=== PATIENT | male | born 1945 | race Caucasian/White ===

== ENCOUNTER → 2018-04-16 | Outpatient (CLI) | payer BC ==
--- NOTE | 2018-04-16 12:33 | 2DMMODE ---
[facility] [place] [address] 2 D/M-MODE ECHOCARDIOGRAM Name: NIEVES CESPEDES Room #: REG [facility]#: [id number] Admission: 04/16/18 Attend Phys: Santi Oliver MD Discharge: Date of : 47 Date of Service: 04/16/18 1233 Report #: [id number] THIS REPORT FOR: //name// APPROVED REPORT Study performed: 04/16/2018 11:12:18 EXAM: Comprehensive 2D, Doppler, and color-flow Echocardiogram Patient Location: Out-Patient Room #: Echo lab 2 Status: routine BSA: 2.38 HR: 68 bpm BP: 132/78 mmHg Rhythm: NSR Other Information Study Quality: Adequate Indications Chest Pain Hypertension/HDD 2D Dimensions RVDd: 35.78 mm IVSd: 12.27 (7-11mm) LVOT Diam: 24.17 (18-24mm) LVDd: 47.92 mm PWd: 11.56 (7-11mm) Ascending Ao: 33.97 (22-36mm) LVDs: 32.44 (25-40mm) Aortic Root: 37.70 mm IVC: 15.00 mm Volumes Left Atrial Volume (Systole) Single Plane 4CH: 39.38 mL Single Plane 2CH: 40.26 mL LA ESV Index: 20.00 mL/m2 Aortic Valve AoV Peak Draiusz.: 1.20 m/s AO Peak Gr.: 5.74 mmHg LVOT Max P.28 mmHg LVOT Max V: 1.03 m/s JINNY Vmax: 3.96 cm2 Mitral Valve E/A Ratio: 0.9 MV Decel. Time: 190.33 ms [facility] [place] [address] [place] [address] 2 D/M-MODE ECHOCARDIOGRAM Name: NIEVES CESPEDES Room #: REG [facility]#: [id number] Admission: 04/16/18 Attend Phys: Santi Oliver MD Discharge: Date of : 47 Date of Service: 04/16/18 1233 Report #: [id number] MV E Max Dariusz.: 0.92 m/s MV A Dariusz.: 1.07 m/s MV PHT: 55.20 ms IVRT: 115.34 ms Pulmonary Valve PV Peak Dariusz.: 0.96 m/s PV Peak Gr.: 3.66 mmHg Pulmonary Vein P Vein S: 0.47 m/s P Vein A: 0.32 m/s P Vein D: 0.48 m/s P Vein A Dur.: 115.3 msec P Vein S/D Ratio: 0.98 Tricuspid Valve TR Peak Dariusz.: 2.39 m/s TR Peak Gr.: 22.93 mmHg PA Pressure: 28.00 mmHg Left Ventricle The left ventricle is normal size. Mild concentric left ventricular hypertrophy. The left ventricular systolic function is normal. The left ventricular ejection fraction is within the normal range. LVEF is 55-60%. Grade I - abnormal relaxation pattern. Right Ventricle The right ventricle is normal size. The right ventricular systolic function is normal. Atria The left atrium size is normal. The right atrium size is normal. Aortic Valve The aortic valve is normal in structure. No aortic regurgitation is present. There is no aortic valvular stenosis. Mitral Valve The mitral valve is normal in structure. Trace to mild mitral regurgitation. No evidence of mitral valve stenosis. Tricuspid Valve The tricuspid valve is normal in structure. There is trace tricuspid regurgitation. Estimated PAP 28 mmHg. There is no pulmonary hypertension. Pulmonic Valve [facility] [address] [place] [address] 2 D/M-MODE ECHOCARDIOGRAM Name: NIEVES CESPEDES Room #: REG [facility]#: [id number] Admission: 04/16/18 Attend Phys: Santi Oliver MD Discharge: Date of : 47 Date of Service: 04/16/18 1233 Report #: [id number] The pulmonary valve is normal in structure. Trace pulmonic regurgitation. Great Vessels The aortic root is normal in size. IVC is normal in size and collapses >50% with inspiration. Pericardium There is no pericardial effusion. <Conclusion> The left ventricle is normal size. Mild concentric left ventricular hypertrophy. The left ventricular systolic function is normal. Grade I - abnormal relaxation pattern. The right ventricle is normal size. The left atrium size is normal. The aortic valve is normal in structure. Trace to mild mitral regurgitation. There is trace tricuspid regurgitation. Estimated PAP 28 mmHg. <ELECTRONICALLY SIGNED> By: Santi Oliver MD 04/16/18 1233 1233 1233 Santi Oliver MD /INF
== END ==
LOC: CV 07:29
DX: I51.7 Cardiomegaly (principal); R06.09 Other forms of dyspnea

== ENCOUNTER 2018-04-23 07:25 | Inpatient (IN) | payer BC, OTHER ==
[~2018-04-23] VITALS: Ht 182.9 cm; Wt 123.4 kg
--- NOTE | ~2018-04-23 | HC ---
[facility] [place] [address] CONSULTATION Name: NIEVES CESPEDES Room #: 207-P [facility] IN M.R.#: [id number] Admission: 04/23/18 Attend Phys: Santi Oliver MD Discharge: 04/28/18 Date of : 47 Report #: [id number] THIS REPORT FOR: //name// CC: Nav Oliver DATE OF SERVICE: 04/23/2018 HISTORY OF PRESENT ILLNESS: We were asked to see the patient by Dr. Oliver. The patient presented with angina characterized by upper back and chest discomfort. Dr. Oliver performed coronary arteriogram. This revealed a total occlusion of the right coronary artery with distal collateral filling as well as high-grade left anterior descending stenosis. There was a large circumflex marginal that was normal and a more distal vessel that was small and had some disease. Left ventricular function was satisfactory. PAST MEDICAL HISTORY: Significant for hypertension and hyperlipidemia. MEDICATIONS AT HOME: Includes Mavik 4 mg daily, hydrochlorothiazide 25 mg b.i.d., verapamil 240 mg daily and Crestor 20 mg daily. ALLERGIES: SULFA CAUSES AN UNKNOWN ALLERGY. SOCIAL HISTORY: The patient is retired. Smoked in the distant past. FAMILY HISTORY: Not significant for precocious coronary disease. REVIEW OF SYSTEMS: GENERAL: The patient states he has been in good health without problems. CONSTITUTIONAL: No fever or chills. EYES: No recent visual changes. HENT: No headaches, no nasal discharge. No sore throat. PULMONARY: No important shortness of breath or sputum production. CARDIAC: As mentioned, angina characterized by upper back discomfort. No palpitations. GASTROINTESTINAL: No nausea, vomiting or blood. GENITOURINARY: No hematuria. No unusual frequency. MUSCULOSKELETAL: No new bone or joint issues. SKIN: No rash or infection. NEUROLOGIC: No motor or sensory deficit. PSYCHIATRIC: No depression or anxiety. HEMATOLOGIC: No anemia, no easy bruisability. PHYSICAL EXAMINATION: GENERAL: The patient is a pleasant fellow who has a bit of an endomorphic habitus. [facility] [address] [place] [address] CONSULTATION Name: NIEVES CESPEDES Room #: [address] [place] [address] IN M.R.#: [id number] Admission: 04/23/18 Attend Phys: Santi Oliver MD Discharge: 04/28/18 Date of : 47 Report #: [id number] VITAL SIGNS: Temperature 36.6, heart rate 71, blood pressure 134/64, respiratory rate 17. HEENT: No scleral icterus, no arcus. NECK: No cervical masses or bruit. CHEST: Clear anteriorly. HEART: Rhythm regular. ABDOMEN: Soft, somewhat protuberant. EXTREMITIES: No clubbing, cyanosis or edema. No obvious saphenous vein problems. SKIN: No rash or infection. MUSCULOSKELETAL: No deformity or asymmetry of significance. NEUROLOGIC: No obvious motor or sensory deficit. PSYCHIATRIC: Shows insight into problem and is a pleasant fellow, answers questions appropriately. ASSESSMENT: The patient has important coronary artery disease. We have recommended coronary artery bypass surgery. Risks and details of this were discussed. These include, but are not limited to, bleeding, infection, anesthesia risks, heart and lung problems, stroke and . Options and alternatives were reviewed. The patient understands all of this and wishes to proceed with surgery. Thank you for the consult. By: 1259 1740 Wolf Bentley MD /nt
[2018-04-23 07:57] LABS: HEMATOCRIT 44.5 % (42.0-52.0); HEMOGLOBIN 15.4 gm/dL (14.0-18.0); MCH 31.3 pg (26.0-34.0); MCHC 34.7 g/dL (28.0-37.0); MCV 90.1 fL (80.0-100.0); RBC 4.93 mil/uL (4.50-6.00); RDW 13.5 % (10.5-14.5)
[2018-04-23 07:58] VITALS: BP 134/64
[2018-04-23] MEDS ORDERED: HYDROCHLOROTHIA25 M1 PO (08:07)
[2018-04-23] MEDS ORDERED: CRESTOR20 MG PO (08:08)
[2018-04-23] MEDS ORDERED: TRANDOLAPRIL4 MG PO (08:09)
[2018-04-23] MEDS ORDERED: VERELAN240 MG PO (08:10)
[2018-04-23 08:14] LABS: ANION GAP 8 mmol/L (7-16); BUN 14 mg/dL (7-18); CALCIUM 8.8 mg/dL (8.5-10.1); CHLORIDE 105 mmol/L (98-107); CO2 28 mmol/L (21-32); CREATININE 1.1 mg/dL (0.7-1.3); GLUCOSE 132 mg/dL (74-106); POTASSIUM 3.9 mmol/L (3.5-5.1); SODIUM 141 mmol/L (136-145)
[2018-04-23 08:20] LABS: CHOLESTEROL 105 mg/dL (<200); HDL CHOLESTEROL 56 mg/dL (>40); LDL CHOLESTEROL 35 mg/dL (<100); TC:HDL 1.9 Ratio (Not establshd); TRIGLYCERIDE 72 mg/dL (<150); VLDL 14 mg/dL (<40)
[2018-04-23 08:21] LABS: SERUM ASSESSMENT Clear
--- NOTE | 2018-04-23 08:40 | EKG ---
[address] [address] ELECTROCARDIOGRAM REPORT Name: NIEVES CESPEDES Room #: REG [facility]#: [id number] Admission: 04/23/18 Attend Phys: Santi Oliver MD Discharge: Date of : 47 Report #: [id number] THIS REPORT FOR: //name// [facility] Test Date: 2018-04-23 Test Time: 07:48:09 Pat Name: NIEVES CESPEDES Department: Room: Gender: Reproduction Order Processor: : 1945 Requested By: Santi Oliver Order Number: [id number] MD: Shen Sherman Measurements Intervals [place] Rate: 70 P: 50 [place]: 202 QRS: -14 QRSD: 92 T: 66 QT: 399 QTc: 431 Interpretive Statements Sinus rhythm No previous ECG available for comparison Electronically Signed On 04-23-2018 8:40:23 ANHYDROUS AMMONIA PRODUCTION SUPERVISOR by Shen Sherman [email or web address] <ELECTRONICALLY SIGNED> By: Shen Sherman MD 04/23/18 0840 0748 0748 Shen Sherman MD /EPI
[2018-04-23 14:02] VITALS: BP 157/89
[2018-04-23 15:23] LABS: ABSOLUTE NEUTROPHILS 5.1 thou/uL (1.4-8.2); BASOPHILS 0.6 % (0.0-2.0); EOSINOPHILS 1.1 % (0.0-3.0); HEMATOCRIT 44.9 % (42.0-52.0); HEMOGLOBIN 15.2 gm/dL (14.0-18.0); LYMPHOCYTES 25.4 % (24.0-44.0); MCH 30.7 pg (26.0-34.0); MCHC 33.9 g/dL (28.0-37.0); MCV 90.5 fL (80.0-100.0); MONOCYTES 8.4 % (1.0-8.0); PLATELET COUNT 172 thou/uL (150-400); POLYS 64.5 % (36.0-66.0); RBC 4.95 mil/uL (4.50-6.00); RDW 13.4 % (10.5-14.5); WBC 7.9 thou/uL (4.0-11.0)
[2018-04-23 15:27] LABS: CALCIUM 8.9 mg/dL (8.5-10.1); CREATININE 1.1 mg/dL (0.7-1.3); POTASSIUM 3.5 mmol/L (3.5-5.1)
[2018-04-23 15:33] LABS: PROTIME 10.4 Seconds (9.3-11.4)
[2018-04-23 15:34] LABS: ALBUMIN 3.9 g/dL (3.4-5.0); TOTAL BILIRUBIN 0.5 mg/dL (<0.1-1.0); TOTAL PROTEIN 6.9 g/dL (6.4-8.2)
--- NOTE | 2018-04-23 16:09 | CATHLAB ---
[facility] [address] [place] [address] INVASIVE PROCEDURE REPORT Name: NIEVES CESPEDES Room #: 209-P ADM IN M.R.#: [id number] Admission: 04/23/18 Attend Phys: Santi Oliver MD Discharge: Date of : 47 Date of Service: 04/23/18 1609 Report #: [id number] THIS REPORT FOR: //name// APPROVED REPORT Study performed: 04/23/2018 09:04:08 Patient Details Patient Status: Out-Patient Room #: The patient is a 72 year-old male Event Personnel Santi Oliver Subgrade Roller Operator, Simran Coronado CVT Monitor, Ab Contreras RN, Delicia Lynne Scrub Procedures Performed Left Heart Cath w/or w/o Coronaries [id number] [facility] Indication Dyspnea, Positive stress test, Chest pain Risk Factors Hypercholesterolemia, Hypertension Procedure Narrative The Right Groin^ was infiltrated with 1% Lidocaine subcutaneous anesthesia. A PINNACLE 4FR Sheath #[id number] sheath was inserted into the RFA 4fr^. Coronary angiography was performed using coronary diagnostic catheters. The right coronary system was accessed and visualized with a JR4 catheter. The left coronary system was accessed and visualized with a 4FR JL 5.0 #[id number] catheter. The left ventricle was accessed and visualized with a 4FR PIGTAIL 145 ANGLED #[id number] catheter. Left ventriculogram was performed in 30 degree projection. Hemostasis was obtained with manual pressure following sheath removal without any complications. The patient tolerated the procedure well and there were no complications associated with the procedure. Intraoperative Conscious Sedation Sedation start time: 9.52 Case end Time: 10.38 Fentanyl 50 mcg Versed 1.5 mg Fluoro Time: 1.50 minutes Dose: DAP 03012.00 cGycm2 2339 mGy Contrast Type and Amount: Omnipaque 135 ml [facility] [place] [address] INVASIVE PROCEDURE REPORT Name: NIEVES CESPEDES VASU Room #: 209-P ADM IN M.R.#: [id number] Admission: 04/23/18 Attend Phys: Santi Oliver MD Discharge: Date of : 47 Date of Service: 04/23/18 1609 Report #: [id number] Coronary Angiography The patient's coronary anatomy is right dominant. Diagnostic Cath Left Main This is a patent vessel, with no flow-limiting lesions. LAD There is a severe stenosis in the proximal segment, 95%. The mid and distal segments are patent with no flow-limiting lesions. The apical LAD has a severe occlusion, after traversing the apex. Diagonal 1 This is a small-caliber vessel, with severe proximal disease. Diagonal 2 This is a small-caliber vessel, with severe proximal disease. Circumflex There is a moderate size caliber vessel, with mild disease proximally. OM1 This is a moderate size caliber vessel, with no flow-limiting lesions. OM2 This is a small-caliber vessel, with severe proximal disease. Right Coronary There is a subtotal occlusion within the mid segment. After the obstruction, there is diminished flow in the distal RCA and its branches. R PDA This is partially filled via collateral circulation from septal perforators off the LAD. RPLV This is a moderate size caliber vessel, with no flow-limiting lesions. Left Ventriculography The left ventricle is normal in size with normal contractility. The left ventricular ejection fraction is estimated to be 55-60%. Hemodynamics The aortic pressure is 122/70 mmHg with a mean of 69 mmHg. The left ventricular pressure is 140/16 mmHg with a mean of mmHg. The left ventricular end diastolic pressure is 23 mmHg. There was no gradient across the aortic valve upon pullback. Pullback from the left ventricle to the aorta revealed no gradient across the aortic valve. Conclusion 1. Severe multivessel coronary artery disease. [facility] [address] [address] INVASIVE PROCEDURE REPORT Name: NIEVES CESPEDES Room #: 209-P [facility] IN M.R.#: [id number] Admission: 04/23/18 Attend Phys: Santi Oliver MD Discharge: Date of : 47 Date of Service: 04/23/18 1609 Report #: [id number] 2. Normal LV systolic function. 3. Recommend CV surgical consultation. <ELECTRONICALLY SIGNED> By: Santi Oliver MD 04/23/18 1609 08 08 Santi Oliver MD /INF
[2018-04-23 19:45] VITALS: BP 161/53
[2018-04-23 21:53] LABS: URINE BILIRUBIN NEGATIVE (Negative); URINE BLOOD NEGATIVE (Negative); URINE CLARITY CLEAR; URINE COLOR YELLOW; URINE GLUCOSE-RANDOM* NEGATIVE (Negative); URINE KETONES NEGATIVE (Negative); URINE LEUKOCYTES-REFLEX NEGATIVE (Negative); URINE NITRITE-REFLEX NEGATIVE (Negative); URINE PROTEIN (DIPSTICK) NEGATIVE (Negative); URINE UROBILINOGEN 0.2 E.U./dl (0.2-1.0)
[2018-04-23 22:07] LABS: CASTS None Seen /LPF (None Seen); SQUAMOUS None Seen /LPF (0-3)
[2018-04-23 22:08] LABS: BACTERIA-REFLEX None Seen /HPF (None Seen); CRYSTALS None Seen /LPF (None Seen); URINE RBC None Seen /HPF (0-2); URINE WBC-REFLEX None Seen /HPF (0-5)
[2018-04-23 23:11] LABS: GLYCOHEMOGLOBIN (HGB A1C) 6.2 % (4.8-5.6)
[2018-04-24] VITALS (21 sets, daily range): BP systolic 92–153; BP diastolic 47–92
[2018-04-24 04:27] LABS: HEMATOCRIT 39.9 % (42.0-52.0); HEMOGLOBIN 13.7 gm/dL (14.0-18.0); MCHC 34.3 g/dL (28.0-37.0); MCV 90.2 fL (80.0-100.0); RBC 4.42 mil/uL (4.50-6.00); RDW 13.4 % (10.5-14.5); WBC 7.7 thou/uL (4.0-11.0)
[2018-04-24 04:34] LABS: CALCIUM 8.7 mg/dL (8.5-10.1); POTASSIUM 3.9 mmol/L (3.5-5.1)
--- NOTE | 2018-04-24 06:28 | NUR ---
PT TOOK HIS HIBICLENS SHOWERS PM AND AM, IV PRE-OP VANCO INFUSING, VSS, RIGHT GROIN DRESSING CDI, REPORT GIVEN TO PRE-OP RN, TRANSPORTED PT TO PRE-OP AT 0630, BELONGINGS LABELED AND TAKEN TO ICU.
[2018-04-24 13:11] LABS: HEMATOCRIT 28.9 % (42.0-52.0); MCH 31.1 pg (26.0-34.0); MCHC 34.7 g/dL (28.0-37.0); MCV 89.6 fL (80.0-100.0); RBC 3.22 mil/uL (4.50-6.00); RDW 13.6 % (10.5-14.5); WBC 16.9 thou/uL (4.0-11.0)
[2018-04-24 13:22] LABS: APTT 27.2 Seconds (24.5-32.8); INR 1.3
[2018-04-24 13:25] LABS: PROTIME 13.6 Seconds (9.3-11.4)
--- NOTE | 2018-04-24 13:48 | NUR ---
RD consult received. CABG surgical intervention 04/24. Lipids well controlled, A1C 6.2-mild elevated. Await for ability to advance diet and transfer out of ICU, then follow up on any diet education needs. Low nutrition risk
[2018-04-24 14:00] LABS: POC BE -2 mmol/L (-2.0 to +3.0); POC CA IONIZED 4.3 mg/dL (4.5-5.3); POC GLUCOSE 140 mg/dL (70-99); POC HCO3 22.2 mmol/L (22.0-26.0); POC HEMOGLOBIN 10.2 g/dL (14.0-18.0); POC SODIUM 139 mmol/L (136-145); POC pCO2 32.9 mmHg (35.0-45.0); POC pH 7.437 (7.360-7.450)
[2018-04-24 14:00] LABS: POC BE 3 mmol/L (-2.0 to +3.0); POC CA IONIZED 4.4 mg/dL (4.5-5.3); POC GLUCOSE 151 mg/dL (70-99); POC HCO3 27.4 mmol/L (22.0-26.0); POC HEMOGLOBIN 9.2 g/dL (14.0-18.0); POC SODIUM 140 mmol/L (136-145); POC pCO2 41.9 mmHg (35.0-45.0); POC pH 7.423 (7.360-7.450)
[2018-04-24 14:00] LABS: POC BE 3 mmol/L (-2.0 to +3.0); POC CA IONIZED 4.4 mg/dL (4.5-5.3); POC GLUCOSE 143 mg/dL (70-99); POC HCO3 26.6 mmol/L (22.0-26.0); POC HEMOGLOBIN 9.5 g/dL (14.0-18.0); POC SODIUM 138 mmol/L (136-145); POC pCO2 37.1 mmHg (35.0-45.0); POC pH 7.464 (7.360-7.450)
[2018-04-24 14:00] LABS: POC BE 1 mmol/L (-2.0 to +3.0); POC CA IONIZED 4.5 mg/dL (4.5-5.3); POC GLUCOSE 147 mg/dL (70-99); POC HCO3 25.1 mmol/L (22.0-26.0); POC HEMOGLOBIN 9.5 g/dL (14.0-18.0); POC POTASSIUM 3.9 mmol/L (3.5-5.1); POC SODIUM 141 mmol/L (136-145); POC pCO2 38.4 mmHg (35.0-45.0); POC pH 7.424 (7.360-7.450)
[2018-04-24 14:00] LABS: POC BE 2 mmol/L (-2.0 to +3.0); POC CA IONIZED 4.6 mg/dL (4.5-5.3); POC GLUCOSE 131 mg/dL (70-99); POC HCO3 25.6 mmol/L (22.0-26.0); POC HEMOGLOBIN 11.6 g/dL (14.0-18.0); POC POTASSIUM 4.1 mmol/L (3.5-5.1); POC SODIUM 140 mmol/L (136-145); POC pCO2 36.1 mmHg (35.0-45.0); POC pH 7.458 (7.360-7.450)
[2018-04-24 14:00] LABS: POC BE 3 mmol/L (-2.0 to +3.0); POC CA IONIZED 4.6 mg/dL (4.5-5.3); POC GLUCOSE 137 mg/dL (70-99); POC HCO3 27.7 mmol/L (22.0-26.0); POC HEMOGLOBIN 12.2 g/dL (14.0-18.0); POC POTASSIUM 4.5 mmol/L (3.5-5.1); POC SODIUM 138 mmol/L (136-145); POC pCO2 41.4 mmHg (35.0-45.0); POC pH 7.434 (7.360-7.450)
[2018-04-24 14:01] LABS: POC BE -1 mmol/L (-2.0 to +3.0); POC CA IONIZED 4.9 mg/dL (4.5-5.3); POC GLUCOSE 126 mg/dL (70-99); POC HCO3 23.6 mmol/L (22.0-26.0); POC HEMOGLOBIN 10.2 g/dL (14.0-18.0); POC POTASSIUM 3.9 mmol/L (3.5-5.1); POC SODIUM 141 mmol/L (136-145); POC pCO2 36.2 mmHg (35.0-45.0); POC pH 7.422 (7.360-7.450)
[2018-04-24 14:01] LABS: POC BE -1 mmol/L (-2.0 to +3.0); POC CA IONIZED 4.9 mg/dL (4.5-5.3); POC GLUCOSE 138 mg/dL (70-99); POC HCO3 23.4 mmol/L (22.0-26.0); POC HEMOGLOBIN 9.2 g/dL (14.0-18.0); POC POTASSIUM 3.6 mmol/L (3.5-5.1); POC SODIUM 140 mmol/L (136-145); POC pCO2 37.2 mmHg (35.0-45.0); POC pH 7.407 (7.360-7.450)
[2018-04-24 14:01] LABS: POC BE 1 mmol/L (-2.0 to +3.0); POC CA IONIZED 4.4 mg/dL (4.5-5.3); POC GLUCOSE 147 mg/dL (70-99); POC HCO3 26.1 mmol/L (22.0-26.0); POC HEMOGLOBIN 8.8 g/dL (14.0-18.0); POC POTASSIUM 4.1 mmol/L (3.5-5.1); POC SODIUM 140 mmol/L (136-145); POC pCO2 44.7 mmHg (35.0-45.0); POC pH 7.374 (7.360-7.450)
[2018-04-24 14:26] LABS: BE(vivo) -3.1 mmol/L (-2 to +3); HCO3 22.3 mmol/L (22.0-26.0); PCO2 41.3 mmHg (35.0-45.0); PO2 70.5 mmHg (80.0-100.0); pH 7.351 (7.360-7.450); sO2 93.5 % (92.0-98.0)
[2018-04-24 14:35] LABS: HEMATOCRIT 33.1 % (42.0-52.0); HEMOGLOBIN 11.7 gm/dL (14.0-18.0); MCH 31.6 pg (26.0-34.0); MCHC 35.3 g/dL (28.0-37.0); MCV 89.5 fL (80.0-100.0); RBC 3.7 mil/uL (4.50-6.00); RDW 13.4 % (10.5-14.5); WBC 15.5 thou/uL (4.0-11.0)
[2018-04-24 14:53] LABS: CALCIUM 7.8 mg/dL (8.5-10.1); CREATININE 0.9 mg/dL (0.7-1.3); MAGNESIUM 2.2 mg/dL (1.8-2.4); POTASSIUM 4.1 mmol/L (3.5-5.1)
--- NOTE | 2018-04-24 16:38 | NUR ---
PT ARRIVED FROM OR TO ROOM 236 AT 1405, ACCOMPANIED BY DR CLIFTON, AND 2 WATER PROJECT MANAGER'S. ONE RN BAGGING PATIENT UNTIL RT ANA LILIA HOOKED PT UP TO VENTILATOR. PT SEDATED AND ON PROPOFOL. MED CT AND PLEURAL CT HOOKED TO ATRIUM SUCTION -20. PACER WIRED CONNECTED BUT TURNED OFF. RT RADIAL ART LINE WITH ARM BOARD IN PLACE. SWAN CATHETER HOOKED TO MONITOR. OG TO LIS. LLE GRAFT SITE COVERED AND LESTER WRAP IN PLACE. SCD PLACED TO RLE. PT ON CARDENE FOR BP CONTROL.
--- NOTE | 2018-04-24 16:49 | O ---
[facility] [place] [address] OPERATIVE REPORT Name: NIEVES CESPEDES Room #: 236-P ADM IN M.R.#: [id number] Admission: 04/23/18 Attend Phys: Santi Oliver MD Discharge: Date of : 47 Report #: [id number] THIS REPORT FOR: //name// CC: Nav Oliver DATE OF SERVICE: 04/24/2018 PREOPERATIVE DIAGNOSIS: Coronary artery disease. POSTOPERATIVE DIAGNOSIS: Coronary artery disease. OPERATION: Coronary artery bypass x 3 including left internal mammary artery to left anterior descending artery and saphenous vein to right coronary and posterior descending arteries. SURGEON: Wolf Bentley M.D. JUKE BOX MECHANIC: STEVEN Oleary. ANESTHESIA: General. INDICATIONS: The patient is a 72-year-old seen for Dr. Oliver. The patient presents with angina. Cardiac catheterization demonstrates a total occlusion of the right coronary artery with distal collateral filling and high-grade lesion of the mid left anterior descending artery. There is a large circumflex marginal that is normal and more distal circumflex vessels that are small, but have some disease and the diagonals are tiny. Left ventricular function is satisfactory. FINDINGS AND TECHNIQUE: After general anesthesia was established, saphenous vein was harvested using an endoscopic approach and an open approach and prepared for use as a conduit. Exposure was obtained through median sternotomy. Left internal mammary artery was harvested from chest wall. Pericardial well was made. Cannulation sutures were placed. Heparin was given. Aorta was cannulated. Right atrium was cannulated. Cardioplegia needle was positioned in the aortic root. Retrograde cardioplegic catheter was placed in the coronary sinus. Cardiopulmonary bypass was established. The aorta was cross clamped. Antegrade and retrograde cardioplegia were given. Ice was poured in the pericardial well. The heart was stopped. During electromechanical arrest, the distal anastomoses were performed. An end-to-side anastomosis was made between vein and the posterior descending artery. This was a 1.5-mm vessel. Cold cardioplegia was given. The same [facility] [address] [place] [address] OPERATIVE REPORT Name: NIEVES CESPEDES Room #: 236-P [facility] IN M.R.#: [id number] Admission: 04/23/18 Attend Phys: Santi Oliver MD Discharge: Date of : 47 Report #: [id number] segment of vein was sewn in [id number] fashion to the right coronary artery beyond the occlusion. This was a large vessel measuring 2 mm. Cold cardioplegia was given. Left internal mammary artery was sewn in end-to-side fashion to the left anterior descending artery. This was also a large vessel measuring 2 mm. The anastomosis was checked with the temperature technique. Cold cardioplegia was given. One proximal anastomosis was performed and this was complete. Warm retrograde cardioplegia was given followed by warm continuous blood to the coronary sinus. When this infusion was complete, the crossclamp was removed, de-airing maneuvers were performed. The anastomoses were inspected and found to be satisfactory. As the patient warmed, nice cardiac activity resumed, chest tubes and pacing wires were placed. A marker was placed around our anastomoses. When the patient was warmed, he was weaned from cardiopulmonary bypass. Venous cannula was removed. Protamine was given. The aortic cannula was removed. Flows were measured in the bypass grafts. When hemostasis was satisfactory, the chest was closed in the usual fashion. The patient was taken to the Intensive Care Unit in satisfactory condition. All counts were reported as correct. <ELECTRONICALLY SIGNED> By: Wolf Bentley MD 04/24/18 1649 1513 1603 Wolf Bentley MD /nt
[2018-04-24 16:54] LABS: BE(vivo) -4.7 mmol/L (-2 to +3); HCO3 21.7 mmol/L (22.0-26.0); PCO2 45.4 mmHg (35.0-45.0); sO2 93.1 % (92.0-98.0)
[2018-04-24 16:56] LABS: pH 7.298 (7.360-7.450)
--- NOTE | 2018-04-24 17:22 | NUR ---
1600 PROPOFOL TITRATED DOWN, PT AWOKE AGITATED REQUIRING CONSTANT REORIENTATION. PT C/O CHEST PAIN, IV FENTANYL GIVEN. RT CONTACTED AND CPAP TRIAL STARTED, PT ABLE TO CALM DOWN WITH THERAPEUTIC TALK. ABG COMPLETED. PT EXTUBATED AT 1710. OG D/C WITH EXTUBATION. FACE MASK AT 60% APPLIED. PT DROWSY BUT EASILY AROUSED.
[2018-04-24 19:00] LABS: HCO3 22.8 mmol/L (22.0-26.0); PCO2 43.3 mmHg (35.0-45.0); PO2 69.4 mmHg (80.0-100.0); pH 7.339 (7.360-7.450); sO2 92.9 % (92.0-98.0)
--- NOTE | 2018-04-24 19:10 | NUR ---
PRECEDEX GTT STARTED FOR AGITATION. PT EASILY AROUSABLE. C/O CHEST PAIN, PRN FENTANYL GIVEN. ALBUMIN GIVEN, BP AND SVR IMPROVED. REPORT GIVEN TO SUGAR JOHNSON.
--- NOTE | 2018-04-25 01:52 | NUR ---
ASSUMED CARE OF PT AT 1900. PT DROWSY THROUGH OUT SHIFT. EASILY AROUSABLE TO VERBAL STIMULI. PT ORIENTED X4. C/O CHEST PAIN. PT SR ON THE MONITOR. CARDENE GTT ON AND OFF INTERMITTENTLY TO MAINTAIN BP. ADEQUATE UO. PT HEMODYNAMICALLY WITHING LIMITS POST CABG. WILL CONTINUE TO MONITOR PT.
[2018-04-25 04:19] LABS: CALCIUM 7.7 mg/dL (8.5-10.1); MAGNESIUM 2.1 mg/dL (1.8-2.4); POTASSIUM 4.3 mmol/L (3.5-5.1)
[2018-04-25 05:50] LABS: HEMATOCRIT 31.3 % (42.0-52.0); HEMOGLOBIN 11.1 gm/dL (14.0-18.0); MCH 31.7 pg (26.0-34.0); MCHC 35.3 g/dL (28.0-37.0); MCV 89.9 fL (80.0-100.0); RBC 3.49 mil/uL (4.50-6.00); RDW 13.3 % (10.5-14.5)
--- NOTE | 2018-04-25 08:27 | EKG ---
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
--- NOTE | 2018-04-25 08:31 | EKG ---
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
[2018-04-25 11:05] VITALS: BP 119/56
[2018-04-25 13:25] VITALS: BP 137/65
--- NOTE | 2018-04-25 13:59 | NUR ---
CM ASSESSMENT: CASE OPENED FOR DC PLANNING. CLINICAL INFO REVIEWED AND MET WITH PT AND SPOUSE THIS AM. PT IS POD # 1 CABG AND UP IN CHAIR THIS AM. PT AND SPOUSE LIVE IN HOUSE. 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 SPOUSE WORKS FT WELL. CHILDREN AND EXTENDED FAMILY FOR SUPPORT. NO DME OR PREVIOUS HH. PT HAD TKR IN FALL OF 2017 AND FINISHED OUTPT THERAPY. WILL LIKELY DISCHARGE HOME NO NEEDS WITH OUTPT CARDIAC REHAB PLAN. WILL FOLLOW THERAPY EVALS AND ASSIST WITH COORDINATION OF DC NEEDS.
[2018-04-25 16:00] VITALS: BP 142/67
--- NOTE | 2018-04-25 18:34 | NUR ---
ASSESSMENTS AND VITAL SIGNS DOCUMENTED. PATIENT SAT IN CHAIR DURING THE MORNING TIME. THEN GOT BACK TO BED WITH PHYSICAL THERAPY. REPORT GIVEN TO ANOTHER RN FOR CONTINUATION OF CARE IN THE 1400 HOUR. PLAN OF CARE IS TO CONTINUE TO MONITOR PATIENT STATUS, AND PAIN LEVEL.
--- NOTE | 2018-04-25 20:01 | NUR ---
ASSUMED CARE OF PT AT 1300. PT C/O PAIN WHERE MEDS ARE, DC THIS EVENING PE DR YOUSSEF. ANIYA FISCHER, NO VOID YET. UP WITH THERAPY, NEEDS TO PROGRESS. POSSIBLE TX TO CCU TOMORROW. CARDENE GTT TO KEEP BP <150. PRN PAIN PILLS. STATES HE FEELS MUCH BETTER AFTER CT DC.
[2018-04-25 22:42] VITALS: BP 108/59
[2018-04-26] VITALS (7 sets, daily range): BP systolic 101–143; BP diastolic 53–76
[2018-04-26 06:14] LABS: HEMOGLOBIN 9.9 gm/dL (14.0-18.0); MCH 32.2 pg (26.0-34.0); MCHC 35.5 g/dL (28.0-37.0); MCV 90.6 fL (80.0-100.0); RBC 3.09 mil/uL (4.50-6.00); RDW 13.5 % (10.5-14.5); WBC 13.6 thou/uL (4.0-11.0)
[2018-04-26 06:33] LABS: CALCIUM 7.9 mg/dL (8.5-10.1); CREATININE 1.2 mg/dL (0.7-1.3); MAGNESIUM 2.1 mg/dL (1.8-2.4); POTASSIUM 4.2 mmol/L (3.5-5.1)
--- NOTE | 2018-04-26 07:26 | NUR ---
PT CURRENTLY UP IN CHAIR. SLEEP OFF AND ON THROUGHOUT SHIFT. PT REMAINS ON NC AT 5L BUT HAS BEEN ON FS AT 60% TO KEEP SATS >92% PT HAS REQUIRED A DOSE OF PAIN MEDICATION THROUGHOUT SHIFT. WAS ABLE TO TITRATE CARDENE OFF DURING SHIFT. PT CONTINUES WITH A-LINE. SR ON MONITOR. LEFT PLEURAL CT INTACT.
--- NOTE | 2018-04-26 16:30 | NUR ---
transfered to CCU via . All belongings with pt.
--- NOTE | 2018-04-26 17:13 | NUR ---
REPORT RECEIVED FROM SUGAR MCGEE IN ICU. PT TRANSFERRED AROUND 1645 FROM ICU TO 208 ON CCU. PT UP WITH ASSIST X 1 TO CHAIR IN ROOM. C/O PAIN WITH MOVEMENT AT 10/17. MEDS GIVEN PER JUN. ORIENTED TO ROOM AND CALL LIGHT IN REACH. FAMILY AT BEDSIDE. CT AND CABG DRESSING C/D/I. WATER GIVEN. VSS.ASSESSMENT PER CHART. WILL CONT TO MONITOR AND INTERVENE PRN.
[2018-04-27 00:24] VITALS: BP 142/63
--- NOTE | 2018-04-27 04:03 | NUR ---
ASSUMED PT CARE AT 1900. A/OX4, VITAL SIGNS STABLE, ASSESSMENT CHARTED. INCISSION DRESSING CLEAN,DRY, INTACT. STERNAL PAIN ADEQAUTELY CONTROLLED WITH PAIN MEDICATION. PT ENCOURGAED TO USE IS. PT RESTED WELL THROUGH THE NIGHT. PROGRESSING TOWARD PLAN OF CARE. WILL CONTINUE TO MONITOR.
[2018-04-27 04:44] VITALS: BP 143/66
[2018-04-27 05:18] LABS: HEMATOCRIT 27.6 % (42.0-52.0); HEMOGLOBIN 9.8 gm/dL (14.0-18.0); MCHC 35.5 g/dL (28.0-37.0); MCV 90.3 fL (80.0-100.0); RBC 3.06 mil/uL (4.50-6.00); RDW 13.2 % (10.5-14.5); WBC 9.1 thou/uL (4.0-11.0)
[2018-04-27 05:30] LABS: CALCIUM 8.4 mg/dL (8.5-10.1); MAGNESIUM 2.1 mg/dL (1.8-2.4); POTASSIUM 3.7 mmol/L (3.5-5.1)
[2018-04-27 07:45] VITALS: BP 144/67
[2018-04-27] MEDS ORDERED: COREG6.25 MG PO (08:32)
[2018-04-27] MEDS ORDERED: LISINOPRIL10 MG PO (08:32)
[2018-04-27] MEDS ORDERED: PACERONE200 MG PO (08:32)
[2018-04-27] MEDS ORDERED: ASPIR 8181 MG PO (08:32)
--- NOTE | 2018-04-27 09:35 | NUR ---
Follow up on diet education needs s/p CABG. Very aware on healthier food options and chooses mostly fruits/veg, fish, lean meats, and limited high Na foods.
[2018-04-27 11:55] VITALS: BP 125/55
[2018-04-27 16:15] VITALS: BP 130/65
--- NOTE | 2018-04-27 18:55 | NUR ---
ASSUMED CARE OF PT AT 0700. PT A&OX4, UP AMBULATING HALLWAYS. PT HAS PAIN CONTROLLED WITH HYDROCODONE. PT ON STERNAL PRECAUTIONS. ALL PT'S DRESSINGS CHANGED TODAY AFTER SHOWER. PT VITALS WNL AND WAS SINUS RHYTHM ON TELE. WILL CONT WITH POC.
[2018-04-27 19:28] VITALS: BP 152/70
[2018-04-28 04:54] VITALS: BP 165/68
[2018-04-28 05:37] LABS: ABSOLUTE NEUTROPHILS 4.9 thou/uL (1.4-8.2); BASOPHILS 0.3 % (0.0-2.0); EOSINOPHILS 2.3 % (0.0-3.0); HEMATOCRIT 28.9 % (42.0-52.0); HEMOGLOBIN 10.2 gm/dL (14.0-18.0); LYMPHOCYTES 16.1 % (24.0-44.0); MCH 31.4 pg (26.0-34.0); MCHC 35.2 g/dL (28.0-37.0); MCV 89.4 fL (80.0-100.0); MONOCYTES 11.7 % (1.0-8.0); PLATELET COUNT 144 thou/uL (150-400); POLYS 69.6 % (36.0-66.0); RBC 3.23 mil/uL (4.50-6.00); RDW 13.5 % (10.5-14.5)
[2018-04-28 05:55] LABS: CALCIUM 8.5 mg/dL (8.5-10.1); CREATININE 0.9 mg/dL (0.7-1.3); MAGNESIUM 1.9 mg/dL (1.8-2.4); POTASSIUM 3.3 mmol/L (3.5-5.1)
--- NOTE | 2018-04-28 07:59 | NUR ---
PT.'S VS STABLE DURING THE NIGHT; ABLE TO AMBULATE TO BATHROOM; C/O PAIN TWICE DURING THE NIGHT; PRN PAIN MEDICATION GIVEN; UP TO CHAIR; ASSESSMENT CHARGED; FOLLOWING POC; PASS ON REPORT.
[2018-04-28 08:00] VITALS: BP 151/71
[2018-04-28] MEDS ORDERED: ZESTRIL20 MG PO (09:19)
[2018-04-28] MEDS ORDERED: KLOR-CON 1010 MEQ PO (09:21)
--- NOTE | 2018-04-28 10:52 | EKG ---
[address] [address] ELECTROCARDIOGRAM REPORT Name: NIEVES CESPEDES Room #: 208-P ADM IN M.R.#: [id number] Admission: 04/23/18 Attend Phys: Santi Oliver MD Discharge: Date of : 47 Report #: [id number] THIS REPORT FOR: //name// [facility] Test Date: 2018-04-28 Test Time: 07:54:14 Pat Name: NIEVES CESPEDES Department: Room: 208 P Gender: M Freight Loader: warren : 1945 Requested By: Wolf Bentley Order Number: [id number] MD: Chalino Stearns Measurements Intervals [place] Rate: 82 P: 27 [place]: 169 QRS: 16 QRSD: 90 T: 57 QT: 400 QTc: 468 Interpretive Statements Sinus rhythm Abnormal R-wave progression, late transition Compared to ECG 04/25/2018 06:50:40 No significant changes Electronically Signed On 04-28-2018 10:52:[address] LIGHT REPAIRER by Chalino Stearns [email or web address] <ELECTRONICALLY SIGNED> By: Chalino Stearns MD, [facility] 04/28/18 [id number] Chalino Stearns MD, FACC /EPI
[2018-04-28 12:00] VITALS: BP 149/65
[2018-04-28 14:11] VITALS: BP 149/65
--- NOTE | 2018-04-28 15:06 | NUR ---
PT CARE ASSUMED APPROX 0700. PT ALERT AND ORIENTED X4. DENIES PAIN AND SOA. BP SLIGHLTY ELEVATED AND BP MEDS ADJUSTED AND ADMINISTERED. LASIX GIVEN AND K+ REPLACED PER PROTOCOL. VS OTHERWISE STABLE. PT TO DISCHARGE HOME THIS SHIFT TO SELF CARE. SPOUSE PRESENT FOR DISCHARGE TEACHING. BOTH PT AND SPOUSE DENY QUESTIONS OR CONCERNS REGARDING DISCHARGE MEDS, F/U APPTS, SCRIPTS, STERNAL PRECAUTIONS OR HOME POST OP CARE, INCISION CARE, ACTIVITY RESTRICTIONS, DIET, FLUID RESTRICTION, AND GENERAL POST HOSPITAL CARE. IV OUT, TELE BOX OFF. HOSPITAL STAFF TO ESCORT PT OUT TO PERSONAL VEHICLE AT THIS TIME.
== END 2018-04-28 15:00 | disposition home or self-care (01) | DRG 233 ==
LOC: CATH 07:25 → 2N 13:58 → ICU 13:58 → CATH 14:37 → ICU 04-24 10:20 → 2N 04-26 16:43
PROVIDERS: Internal Medicine; Surgery Vascular Surgery; ADMIT Internal Medicine Cardiovascular Disease
DX: I25.118 Atherosclerotic heart disease of native coronary artery with other forms of angina pectoris (principal); I50.33 Acute on chronic diastolic (congestive) heart failure; D64.9 Anemia, unspecified; R73.9 Hyperglycemia, unspecified; D72.829 Elevated white blood cell count, unspecified; E78.00 Pure hypercholesterolemia, unspecified; I11.0 Hypertensive heart disease with heart failure; E78.5 Hyperlipidemia, unspecified; Z87.891 Personal history of nicotine dependence; Z79.899 Other long term (current) drug therapy; Z88.2 Allergy status to sulfonamides
CPT/HCPCS: 10081; 10203; 47000; 47001; 47002; 47297; 48888; 50010; 50249; 50409; 50456; 50498; 50668; 51301; 52131; 52259; 52314; 53327; 53358; 54118; 56524; 56525; 56526; 56527; 56528; 56531; 56534; 56668; 56760; 56898; 57093; 62110; 62950; 65003; 65020; 65047; 65120

== ENCOUNTER → 2018-05-15 | Outpatient (CLI) | payer BC, OTHER ==
[~2018-05-15] MED LIST: ASPIR 8181 MG PO; COREG6.25 MG PO; CRESTOR20 MG PO; HYDROCHLOROTHIA25 M1 PO; KLOR-CON 1010 MEQ PO; LISINOPRIL10 MG PO; PACERONE200 MG PO; TRANDOLAPRIL4 MG PO; VERELAN240 MG PO; ZESTRIL20 MG PO
== END ==
LOC: HYPER 06:56
DX: T81.31XA Disruption of external operation (surgical) wound, not elsewhere classified, initial encounter (principal); I87.322 Chronic venous hypertension (idiopathic) with inflammation of left lower extremity; I25.118 Atherosclerotic heart disease of native coronary artery with other forms of angina pectoris; I10 Essential (primary) hypertension; E78.5 Hyperlipidemia, unspecified; J45.998 Other asthma; Z87.891 Personal history of nicotine dependence; Z95.1 Presence of aortocoronary bypass graft; Z98.41 Cataract extraction status, right eye; Z98.42 Cataract extraction status, left eye; Z96.652 Presence of left artificial knee joint; Y92.89 Other specified places as the place of occurrence of the external cause; Y83.8 Other surgical procedures as the cause of abnormal reaction of the patient, or of later complication, without mention of misadventure at the time of the procedure

== ENCOUNTER → 2018-06-07 | Outpatient (CLI) | payer BC, OTHER ==
--- NOTE | 2018-06-07 14:57 | 2DMMODE ---
[facility] [place] [address] 2 D/M-MODE ECHOCARDIOGRAM Name: NIEVES CESPEDES Room #: REG [facility]#: [id number] ������������� Admission: 06/07/18 ������������� Attend Phys: Santi Oliver MD Discharge: ��� ������������� ��� Date of : 47 Date of Service: 06/07/18 1457 �� Report #: [id number] �������� ��������������������������������������������[id number] THIS REPORT FOR: //name// APPROVED REPORT Study performed: 06/07/2018 14:14:18 EXAM: Comprehensive 2D, Doppler, and color-flow Echocardiogram Patient Location: Out-Patient Status: routine BSA: 2.36 HR: 86 bpm BP: 110/70 mmHg Rhythm: NSR Other Information Study Quality: Adequate Indications CAD. Hx: CABG, HTN 2D Dimensions RVDd: 37.41 mm IVSd: 11.85 (7-11mm) LVOT Diam: 22.94 (18-24mm) LVDd: 42.26 mm PWd: 10.60 (7-11mm) Ascending Ao: 36.31 (22-36mm) LVDs: 31.38 (25-40mm) Aortic Root: 39.34 mm Volumes Left Atrial Volume (Systole) Single Plane 4CH: 55.19 mL Single Plane 2CH: 36.86 mL LA ESV Index: 21.00 mL/m2 Aortic Valve AoV Peak Dariusz.: 1.11 m/s AO Peak Gr.: 4.94 mmHg LVOT Max P.20 mmHg LVOT Max V: 1.03 m/s JINNY Vmax: 3.81 cm2 Mitral Valve E/A Ratio: 0.8 MV Decel. Time: 154.98 ms MV E Max Dariusz.: 0.56 m/s [facility] [address] [place] [address] 2 D/M-MODE ECHOCARDIOGRAM Name: NIEVES CESPEDES Room #: REG [facility]#: [id number] ������������� Admission: 06/07/18 ������������� Attend Phys: Santi Oliver MD Discharge: ��� ������������� ��� Date of : 47 Date of Service: 06/07/18 1457 �� Report #: [id number] �������� ��������������������������������������������[id number] MV A Dariusz.: 0.67 m/s MV PHT: 44.94 ms IVRT: 55.36 ms Pulmonary Valve PV Peak Dariusz.: 0.93 m/s PV Peak Gr.: 3.46 mmHg Pulmonary Vein P Vein S: 0.52 m/s P Vein D: 0.43 m/s P Vein S/D Ratio: 1.21 Tricuspid Valve TR Peak Dariusz.: 2.26 m/s RAP Estimate: 5.00 mmHg TR Peak Gr.: 20.41 mmHg PA Pressure: 25.00 mmHg Left Ventricle The left ventricle is normal size. There is normal LV segmental wall motion. Mild concentric left ventricular hypertrophy. Left ventricular systolic function is normal. LVEF is 55%. Mild diastolic dysfunction is present (impaired relaxation pattern). Right Ventricle The right ventricle is normal size. The right ventricular systolic function is normal. Atria The left atrium size is normal. The right atrium size is normal. Aortic Valve Aortic valve is trileaflet, mildly calcified. No aortic regurgitation is present. There is no aortic valvular stenosis. Mitral Valve The mitral valve is normal in structure. Trace mitral regurgitation. Tricuspid Valve The tricuspid valve is normal in structure. Trace tricuspid regurgitation. Estimated PAP is 25mmHg. Pulmonic Valve The pulmonary valve is normal in structure. Trace pulmonic regurgitation. [facility] [place] [address] 2 D/M-MODE ECHOCARDIOGRAM Name: NIEVES CESPEDES Room #: REG CL ..#: [id number] ������������� Admission: 06/07/18 ������������� Attend Phys: Santi Oliver MD Discharge: ��� ������������� ��� Date of : 47 Date of Service: 06/07/18 1457 �� Report #: [id number] �������� ��������������������������������������������[id number] Great Vessels The aortic root is normal in size. The ascending aorta is normal in size. IVC is normal in size and collapses >50% with inspiration. <Conclusion> The left ventricle is normal size. Mild concentric left ventricular hypertrophy. Left ventricular systolic function is normal. Mild diastolic dysfunction is present (impaired relaxation pattern). The right ventricle is normal size. The left atrium size is normal. The right atrium size is normal. Aortic valve is trileaflet, mildly calcified. Trace mitral regurgitation. Trace tricuspid regurgitation. Estimated PAP is 25mmHg. ��������������������������������������������� <ELECTRONICALLY SIGNED> ���������������������������������������� By: Santi Oliver MD ��������������������������������������������� 06/07/18 1457 56 56 Santi Oliver MD /INF
== END ==
LOC: CV 08:20
DX: I35.8 Other nonrheumatic aortic valve disorders (principal); I25.10 Atherosclerotic heart disease of native coronary artery without angina pectoris; I11.9 Hypertensive heart disease without heart failure; Z95.1 Presence of aortocoronary bypass graft

== ENCOUNTER → 2019-05-27 | Outpatient (CLI) | payer BC, OTHER | LOC: SJCVCIMAG 09:07 | DX: I25.9 Chronic ischemic heart disease, unspecified (principal); I25.709 Atherosclerosis of coronary artery bypass graft(s), unspecified, with unspecified angina pectoris; I10 Essential (primary) hypertension; E78.00 Pure hypercholesterolemia, unspecified; E78.5 Hyperlipidemia, unspecified; Z79.82 Long term (current) use of aspirin; Z79.899 Other long term (current) drug therapy; Z95.1 Presence of aortocoronary bypass graft ==

== ENCOUNTER → 2020-08-06 | Outpatient (CLI) | payer OTHER | LOC: SJCVC 10:06 | PROVIDERS: ATTEND Internal Medicine Cardiovascular Disease | DX: R94.31 Abnormal electrocardiogram [ECG] [EKG] (principal); I44.5 Left posterior fascicular block; I25.119 Atherosclerotic heart disease of native coronary artery with unspecified angina pectoris; R60.9 Edema, unspecified; I10 Essential (primary) hypertension; E78.00 Pure hypercholesterolemia, unspecified; E78.5 Hyperlipidemia, unspecified; Z95.1 Presence of aortocoronary bypass graft; Z88.2 Allergy status to sulfonamides; Z88.1 Allergy status to other antibiotic agents; Z98.890 Other specified postprocedural states; Z79.82 Long term (current) use of aspirin; Z79.899 Other long term (current) drug therapy; Z87.891 Personal history of nicotine dependence ==

== ENCOUNTER → 2021-02-05 | Outpatient (CLI) | payer OTHER | LOC: SJCVCIMAG 08:40 | PROVIDERS: ATTEND Internal Medicine Cardiovascular Disease | DX: R94.31 Abnormal electrocardiogram [ECG] [EKG] (principal); I34.0 Nonrheumatic mitral (valve) insufficiency; I10 Essential (primary) hypertension; I25.10 Atherosclerotic heart disease of native coronary artery without angina pectoris; E78.5 Hyperlipidemia, unspecified; E78.00 Pure hypercholesterolemia, unspecified; R60.9 Edema, unspecified; Z95.1 Presence of aortocoronary bypass graft; Z88.2 Allergy status to sulfonamides; Z88.8 Allergy status to other drugs, medicaments and biological substances; Z79.82 Long term (current) use of aspirin; Z79.899 Other long term (current) drug therapy; Z72.89 Other problems related to lifestyle ==